=== PATIENT | male | born 1980 | race Caucasian/White ===

== ENCOUNTER 2023-08-06 11:05 | Emergency (ER) | payer OTHER, SELFPAY ==
[2023-08-06 11:10] VITALS: BP 123/70; PULSE 73; RESP 16; TEMP 36.6; O2SAT 98; BMI 32.3
--- NOTE | 2023-08-06 11:10 | ED.GENADULT ---
HPI - General Adult General Chief complaint: Urogenital-Male Stated complaint: surgery 07/27/ abscess/ wound opened? Time Seen by Provider: 08/06/23 11:40 Source: patient and RN notes reviewed Mode of arrival: ambulatory Limitations: no limitations History of Present Illness HPI narrative: Is a 42-year-old male, with a history of diabetes, presenting to the emergency department with complaints of opening of penile incision, performed on 07/27/2023 for a circumcision. Patient states that on July 27, 2023 he had a circumcision performed at [facility] by Dr. Fuentes. States that 2 nights ago he noticed an opening to the incision. He called his urologist and was told to report to the emergency room to have a suture placed in the wound to have it closed. He has had no fevers, chills, increased pain, dysuria, hematuria, urinary frequency or urgency. No abdominal pain. No other complaints or concerns at this time. MD complaint: Wound check - circumcision Onset (ago): day(s) Pain Consistency: constant Relieving factors: none Exacerbating factors: none Associated symptoms: denies other symptoms Treatments prior to arrival: none Related Data Previous Rx's Medication Instructions Recorded mupirocin 2 % topical ointment 1 appl topical TID #15 grams 08/06/23 Allergies Allergy/AdvReac Type Severity Reaction Status Date / Time No Known Allergies Allergy Verified 08/06/23 11:10 [No Known Allergies*] Review of Systems Review of Systems: Yes all other systems are reviewed and are negative PMFSH Past Medical History Attestation statement: The following information was validated with the patient. Social History Advance Directives: No Physical Exam ED Vital Signs: Vital Signs - 24 hr 08/06/23 11:10 Temperature 97.8 F Pulse Rate 73 Respiratory Rate 16 Blood Pressure 123/70 Pulse Oximetry 98 Oxygen Delivery Method Room Air BMI result Body Mass Index 32.3 Const Other: General: Awake, alert, and oriented X3. No acute distress. HEENT: Normal inspection CVS: Normal heart rate and rhythm. Pulses normal. Respiratory: No respiratory distress Skin: Warm, dry, no rashes noted to exposed skin. Normal skin color. Normal skin turgor. Extremities: : Examination performed, E[place]el[place] GRIMM present. Mild separation at the incision site just below the glans. No surrounding erythema or edema. See photo below. Neuro: Oriented X 3. No motor deficit. No sensory deficit. Course Course Course Narrative: This is a rapid medical exam: Additional HPI, ROS, PE not included below will be deferred to primary provider. Patient is a 42-year-old Slovak speaking male with history of DM presenting to the emergency department with complaint of stitch opening in groin. Patient had a phimosis circumcision at [facility] on 07/27. He called the office this morning to report the suture opening and was told to go to the ED. Denies discharge or drainage, denies fevers. States he is afraid to urinate/touch the area due to concern for increased pain and infection. Area not visualized in triage due to privacy concerns. thinks sutures were supposed to be absorbable. Reevaluation(s) Reevaluation #1: Spoke to Dr. Hewitt, who recommends mupirocin cream. He also does not recommend oral antibiotics at this time as it looks pretty clean. Educated to call his urologist, Dr. Fuentes, on Wednesday for follow-up. Discussed this with patient and partner at bedside, they understand and agree with plan. Given return precautions. Patient stable for discharge. Time: 12:25 Medical Decision Making Medical Decision Making MDM Narrative: This is a 42-year-old male presenting to the emergency department due to wound dehiscence from circumcision performed 10 days ago. On arrival, vital signs within normal limits. examination revealing mild separation at the dorsum of the glans penis, no surrounding erythema or edema. I discussed case with my attending physician Dr. Bonilla, who agrees reaching out to our urologist Dr. Hewitt for further recommendations. Differential Diagnosis Differential Diagnoses: The differential diagnosis associated with the presentation includes Wound dehiscence, cellulitis, abscess, UTI Discharge Plan Discharge Clinical Impression: Visit for wound check Patient Disposition: Home, Self-Care Instructions: Care For Your Absorbable Stitches (ED) Additional Instructions: Please follow all at home instructions provided by Urology. I am giving you a antibiotic ointment, please use as directed. Please call your urologist in follow-up with them on Wednesday. If any new or worsening symptoms occur including but not limited to increased redness, swelling, fevers, chills, pain, please return for re-evaluation. Prescriptions: New mupirocin 2 % ointment 1 appl topical TID Qty: 15 0RF
== END 2023-08-06 12:41 | disposition home or self-care (01) ==
PROVIDERS: Emergency Provider Emergency Medicine; PCP Physician Assistant Medical
DX: Z48.00 Encounter for change or removal of nonsurgical wound dressing (principal)
CPT/HCPCS: 99282; 99283

== ENCOUNTER 2024-02-08 14:57 | Emergency (ER) | payer OTHER, SELFPAY ==
[2024-02-08 15:10] VITALS: BP 125/81; PULSE 76; RESP 18; TEMP 36.7; O2SAT 96; BMI 31.0
--- NOTE | 2024-02-08 15:13 | ED.GENADULT ---
HPI - General Adult General Chief complaint: Abdominal Pain Stated complaint: headache and pain Time Seen by Provider: 02/08/24 21:29 Source: patient Mode of arrival: ambulatory Limitations: no limitations History of Present Illness ED Provider: luba GARSIA narrative: Patient with history of migraine headaches does get headaches once in a every few months complaining of headache mostly in the frontal and behind the eyes for last 3 days feel like something poking NSAID with nausea no fever no sinus problem Related Data Previous Rx's ?Medication ?Instructions ?Recorded mupirocin 2 % topical ointment 1 appl topical TID #15 grams 08/06/23 [id number]-zynrxarfvrejk-ualpareo 1 tab PO Q6H PRN haeadace #20 tabs 02/08/24 50 mg-325 mg-40 mg tablet sumatriptan succinate 50 mg tablet 50 mg PO Q2H PRN migraine headache 02/08/24 (Imitrex) #10 tabs Allergies Allergy/AdvReac Type Severity Reaction Status Date / Time No Known Allergies Allergy Verified 02/08/24 15:11 [No Known Allergies*] Review of Systems Review of Systems: Yes all other systems are reviewed and are negative [facility] Social History Social History Advance Directives: No Advance Directives Information Provided: No Do you have a plan to hurt others: No Plan Physical Exam ED Vital Signs: Vital Signs - 24 hr 02/08/24 15:10 02/08/24 20:50 02/08/24 22:55 Temperature 98.1 F 98.0 F 98.6 F Pulse Rate 76 71 83 Respiratory Rate 18 18 17 Blood Pressure 125/81 143/93 H 126/83 Pulse Oximetry 96 94 100 Oxygen Delivery Method Room Air Room Air Room Air BMI result Body Mass Index 31.0 Appearance: Alert. Oriented X3. No acute distress. Eyes: PERRLA, No Nystagmus ENT: Pharynx normal. Oral Mucosa moist Neck: Normal inspection. Neck supple. CVS: Normal heart rate and rhythm. Pulses normal. Respiratory: No respiratory distress. Equal air entry bilateral, no wheezing/rales/rhonchi Abdomen: Soft and nontender. Bowel sounds are present, no mass palpable, no CVA tenderness Skin: Skin warm and dry. Normal skin color. Normal skin turgor. Extremities: No lower extremity edema. No calf tenderness Neuro: Oriented X 3. No motor deficit. No sensory deficit.No cerebellar signs , cranial nerves II-XII intact Course Course Course Narrative: RME performed by Erinn Carballo PA-C. Patient is a 43 year old assigned male at presenting to the emergency department with a headache, nausea, abdominal pain, and back pain. Patient states over the last 3 days he has felt generally unwell with a headache, nausea, abdominal pain, and back pain. Detailed physical exam and review of systems are deferred to the assistant plant control operator. Labs and swabs ordered. Patient placed back in the waiting room pending room availability and results. Medications Administered Discontinued Medications Generic Name Dose Route Start Last Admin Trade Name Freq PRN Reason Stop Dose Admin Acetaminophen/Butalbital/Caffeine 1 tab 02/08/24 21:54 02/08/24 22:57 Butalb/Acetamin/Caff 50/325/40 Tablet PO 02/08/24 21:55 1 tab ONCE ONE Administration Ondansetron HCl 4 mg 02/08/24 21:54 02/08/24 22:58 Ondansetron Odt 4 Mg Tab.Rapdis TRANSLINGU 02/08/24 21:55 4 mg ONCE ONE Administration Sumatriptan Succinate 6 mg 02/08/24 21:54 02/08/24 22:58 Sumatriptan Succinate 6 Mg/0.5 Ml Vial SUBCUT 02/08/24 21:55 6 mg ONCE ONE Administration Medical Decision Making Medical Decision Making [facility] Narrative: Patient clinically with migraine headache improved after Imitrex discharge patient home on Imitrex and Fioricet Lab Data [facility] Lab Attestation statement: I reviewed the patient's lab results. 02/08/24 16:13 02/08/24 16:13 Labs: Lab Results 02/08/24 02/08/24 Range/Units 16:13 23:02 WBC 7.0 (4.8-10.8) X10*3/uL RBC 4.85 (4.60-5.80) X10*6/uL Hgb 14.3 (14.0-18.0) g/dl Hct 42.1 (42.0-52.0) % MCV 86.8 (80.0-98.0) fL MCH 29.5 (27.0-33.0) pg MCHC 34.0 (31.0-36.0) g/dl RDW 13.2 (11.0-16.0) % Plt Count 222 (160-400) X10*3/uL MPV 9.7 (9.4-12.4) fL Immature Gran % (Auto) 0.4 (0.0-0.4) % Neut % (Auto) 62.1 (45-73) % Lymph % (Auto) 23.9 (20-40) % [place] % (Auto) 11.1 H (2-11) % Eos % (Auto) 1.6 (0-4) % Baso % (Auto) 0.9 (0-2) % Lymph # (Auto) 1.7 (1.2-4.9) X10*3/uL [place] # (Auto) 0.8 (0.1-1.2) X10*3/uL Eos # (Auto) 0.1 (0.0-0.4) X10*3/uL Baso # (Auto) 0.1 (0.0-0.2) X10*3/uL Abs Immat Gran (auto) 0.03 (0.00-0.03) X10*3/uL Absolute Neuts (auto) 4.4 (2.0-8.3) x10*3/uL Absolute Nucleated RBC 0.000 (0.0-0.012) X10*3/uL Nucleated RBC % (auto) 0.0 (0.0-0.2) /100WBC Sodium 136 (135-145) mmol/L Potassium 4.6 (3.3-5.1) mmol/L Chloride 103 (96-108) mmol/L Carbon Dioxide 29 (22-29) mmol/L Anion Gap 9 L (12-20) BUN 9 (9-16) mg/dL Creatinine 0.87 (0.5-1.4) mg/dL Estim Creat Clear Calc 129.9 Estimated GFR > 60 Random Glucose 199 H (60-115) mg/dL Calcium 9.5 (8.4-10.2) mg/dL Magnesium 1.9 (1.6-2.6) mg/dL Total Bilirubin 0.7 (0.0-1.0) mg/dL AST 25 (5-37) U/L ALT 33 (0-40) U/L Alkaline Phosphatase 106 (39-117) U/L Total Protein 7.7 (6.5-8.0) g/dL Albumin 4.1 (3.5-5.0) g/dL Urine Color Yellow Urine Appearance Clear Urine pH 7.5 (5.0-9.0) Ur Specific [place] 1.020 (1.005-1.025) Urine Protein Negative (Neg-Trace) mg/dL Urine Glucose (UA) Negative (Negative) mg/dL Urine Ketones Negative (Negative) mg/dL Urine Blood Negative (Negative) Urine Nitrite Negative (Negative) Ur Leukocyte Esterase Negative (Negative) Influenza Type A (PCR) NEGATIVE (Negative) Influenza Type B (PCR) NEGATIVE (Negative) RSV RNA Qual (PCR) NEGATIVE (Negative) SARS-CoV-2 RNA (RT-PCR) NEGATIVE (Negative) S. pyogenes GrpA AMANDA Negative (Negative) Discharge Plan Discharge Clinical Impression: Headache, migraine Patient Disposition: Home, Self-Care Instructions: Migraine Headache (ED) Additional Instructions: Take medication as prescribed for headache and follow the PCP Prescriptions: New sumatriptan succinate [Imitrex] 50 mg tablet 50 mg PO Q2H PRN (Reason: migraine headache) Qty: 10 0RF Rx Instructions: do not exceed 2 doses per 24 hrs [id number]-xzzjjbjwqwmvs-argp 50-325-40 mg tablet 1 tab PO Q6H PRN (Reason: haeadace) Qty: 20 0RF No Action mupirocin 2 % ointment 1 appl topical TID Qty: 15 0RF Print Language: Malay
[2024-02-08 16:19] LABS: MANUAL DIFF FLAG NO
[2024-02-08 16:22] LABS: Basophils Absolute Auto 0.1 X10*3/uL (0.0-0.2); Basophils Percent Auto 0.9 % (0-2); Eosinophils Absolute Auto 0.1 X10*3/uL (0.0-0.4); Eosinophils Percent Auto 1.6 % (0-4); Hematocrit 42.1 % (42.0-52.0); Hemoglobin 14.3 g/dl (14.0-18.0); Imm Gran Abs Auto 0.03 X10*3/uL (0.00-0.03); Imm Gran Pct Auto 0.4 % (0.0-0.4); Lymphocytes Absolute Auto 1.7 X10*3/uL (1.2-4.9); Lymphocytes Percent Auto 23.9 % (20-40); Mean Corpuscular Hemoglobin 29.5 pg (27.0-33.0); Mean Corpuscular Volume 86.8 fL (80.0-98.0); Mean Platelet Volume 9.7 fL (9.4-12.4); Monocytes Absolute Auto 0.8 X10*3/uL (0.1-1.2); Monocytes Percent Auto 11.1 % (2-11); Neutrophils Absolute Auto 4.4 x10*3/uL (2.0-8.3); Neutrophils Percent Auto 62.1 % (45-73); Platelet Count 222 X10*3/uL (160-400); Red Blood Count 4.85 X10*6/uL (4.60-5.80); Red Cell Distribution Width 13.2 % (11.0-16.0)
[2024-02-08 16:35] LABS: Alanine Aminotransferase 33 U/L (0-40); Albumin Level 4.1 g/dL (3.5-5.0); Alkaline Phosphatase 106 U/L (39-117); Anion Gap 9 (12-20); Aspartate Amino Transferase 25 U/L (5-37); Bilirubin Total 0.7 mg/dL (0.0-1.0); Blood Urea Nitrogen 9 mg/dL (9-16); Calcium 9.5 mg/dL (8.4-10.2); Carbon Dioxide 29 mmol/L (22-29); Chloride 103 mmol/L (96-108); Creatinine Clr Calc Pharmacy 129.9; Estimated Glomerular Filt Rate > 60; Glucose Random 199 mg/dL (60-115); Magnesium 1.9 mg/dL (1.6-2.6); Potassium 4.6 mmol/L (3.3-5.1); Sodium 136 mmol/L (135-145); Total Protein 7.7 g/dL (6.5-8.0)
[2024-02-08 16:51] LABS: IDNOW Serial# 58CA691E; Strep A Nucleic Acid Negative (Negative)
[2024-02-08 16:59] LABS: Influenza A PCR NEGATIVE (Negative); Influenza B PCR NEGATIVE (Negative); Resp Syncy Virus RNA Qual PCR NEGATIVE (Negative); SARS COV2 PCR INHOUSE NEGATIVE (Negative)
[2024-02-08 20:50] VITALS: BP 143/93; PULSE 71; RESP 18; TEMP 36.7; O2SAT 94
[2024-02-08 22:55] VITALS: BP 126/83; PULSE 83; RESP 17; TEMP 37; O2SAT 100
[2024-02-08] MEDS: Butalb/Acetamin/Caff 50/325/40 TABLET 1 TAB PO (22:57)
[2024-02-08] MEDS: Ondansetron ODT 4 MG TAB.RAPDIS TRANSLINGU (22:58)
[2024-02-08] MEDS: SUMAtriptan succinate 6 MG/0.5 ML VIAL SUBCUT (22:58)
[2024-02-08 23:17] LABS: Appearance Urine Clear; Color Urine Yellow; Glucose Urine UA Negative (Negative); Leukocyte Esterase Urine Negative (Negative); Nitrite Urine Negative (Negative); PH 7.5 (5.0-9.0); Urine Blood Negative (Negative); Urine Ketones Negative (Negative); Urine Protein Negative (Neg-Trace)
[2024-02-09 00:29] VITALS: BP 125/73; PULSE 81; RESP 16; TEMP 36.9; O2SAT 96
== END 2024-02-09 00:31 | disposition home or self-care (01) ==
PROVIDERS: Physician Assistant Medical; Emergency Provider Internal Medicine
DX: G43.909 Migraine, unspecified, not intractable, without status migrainosus (principal); Z03.818 Encounter for observation for suspected exposure to other biological agents ruled out
CPT/HCPCS: 0241U; 80053; 81003; 83735; 85025; 87651; 96372; 99283; 99284; J3030